=== PATIENT | male | born 1995 | race Two or more races ===

== ENCOUNTER 2020-01-27 19:17 | Inpatient (IN) | payer BC, OTHER ==
[~2020-01-27] VITALS: Ht 170.2 cm; Wt 60.8 kg
--- NOTE | 2020-01-27 19:45 | NUR ---
PT CAME TO THE ED C/O ALCOHOL WITHDRAWL. TREMORS X 2 DAYS, +NV PT STATES HAVING COFFEE GROUND EMESIS. LAST DRINK @1300 TODAY. PT AAOX4, APPEARS TO BE ANXIOUS, VSS, RESPIRATIONS EVEN AND UNLABORED ON RA W/ NAD NOTED. PT CONNECTED TO THE MONITOR AND POX.
[2020-01-27] MEDS ORDERED: LORAZEPAM INJ 2 MG/ML VIAL IV ONE (20:30)
[2020-01-27 20:39] LABS: BASOPHILS % (AUTO) 0.2 % (0.0-2.0); EOSINOPHILS % (AUTO) 0.3 % (0.0-6.0); HEMATOCRIT 47 % (39-51); HEMOGLOBIN 16.2 g/dL (13.5-17.5); LYMPHOCYTES # (AUTO) 2.6 /CMM (0.8-4.8); LYMPHOCYTES % (AUTO) 23.9 % (20.0-44.0); MEAN CORPUSCULAR HGB CONC 35 g/dl (31.0-36.0); MEAN CORPUSCULAR VOLUME 92 fL (80-96); MONOCYTES # (AUTO) 1.1 /CMM (0.1-1.30); MONOCYTES % (AUTO) 9.8 % (2.0-12.0); NEUTROPHILS # (AUTO) 7.2 /CMM (1.8-8.9); NEUTROPHILS % (AUTO) 65.8 % (43.0-81.0); PLATELET COUNT (AUTO) 226 /CMM (150-450); RED BLOOD CELL COUNT(AUTO) 5.11 MIL/uL (4.5-6.0)
[2020-01-27] MEDS ORDERED: LORAZEPAM INJ 2 MG/ML VIAL ONE (20:58)
[2020-01-27 21:04] LABS: CALCIUM, SERUM 9.8 mg/dL (8.5-10.1); CREATININE 0.9 mg/dL (0.6-1.3); POTASSIUM 3.7 mmol/L (3.5-5.1)
--- NOTE | 2020-01-27 21:09 | NUR ---
PT MEDICATED ORDERED
--- NOTE | 2020-01-27 21:17 | NUR ---
URINE COLLECTED AND SENT TO LAB
--- NOTE | 2020-01-27 21:17 | NUR ---
COVID SWAB SENT TO LAB
[2020-01-27 21:22] LABS: BILIRUBIN,DIRECT 0.3 mg/dL (0.0-0.2); BILIRUBIN,TOTAL 1.1 mg/dL (0.2-1.0)
[2020-01-27 21:23] LABS: ALBUMIN 4.7 g/dL (3.4-5.0); SALICYLATE 0.8 mg/dL (2.8-20.0)
[2020-01-27] MEDS ORDERED: MAG HYDROX/AL HYDROX/SIMETH 30 ML UDC ONE (21:27)
[2020-01-27] MEDS ORDERED: ONDANSETRON HCL/PF 4 MG/2 ML VIAL ONE (21:27)
[2020-01-27] MEDS ORDERED: LIDOCAINE VISCOUS 2% UD 15 ML UDC ONE (21:27)
[2020-01-27] MEDS ORDERED: LIDOCAINE VISCOUS 2% UD 15 ML UDC MM ONE (21:30)
[2020-01-27] MEDS ORDERED: MAG HYDROX/AL HYDROX/SIMETH 30 ML UDC PO ONE (21:30)
[2020-01-27] MEDS ORDERED: ONDANSETRON HCL/PF 4 MG/2 ML VIAL IVP ONE (21:30)
[2020-01-27 21:34] LABS: APPEARANCE,URINE Slightly Cloudy (CLEAR); BILIRUBIN,URINE SMALL (NEGATIVE); BLOOD, URINE Negative Ery/uL (NEGATIVE); COLOR,URINE Dark (YELLOW); KETONES,URINE 40 (NEGATIVE); LEUKOCYTE ESTERASE ,URINE Negative (NEGATIVE); NITRITE, URINE Negative (NEGATIVE); PROTEIN,URINE Trace mg/dl (NEGATIVE); UGLUCOSE Negative (NEGATIVE); UROBILINOGEN,URINE 0.2 EU/dL (0.2)
[2020-01-27] MEDS ORDERED: DIVA250T PO (21:35)
[2020-01-27] MEDS ORDERED: BUSP30TA2 PO (21:36)
[2020-01-27 21:46] LABS: BACTERIA,URINE None seen /HPF (None Seen); RBC,URINE 0-2 /HPF (0-2); SQUAMOUS EPITHELIAL CELL,UR Rare /HPF (None Seen); WBC,URINE 0-2 /HPF (0-3)
--- NOTE | 2020-01-27 22:00 | NUR ---
CALLED LAB FOR COVID RESULT. STILL PENDING
--- NOTE | 2020-01-27 22:07 | NUR ---
[facility] STAFF [facility]OX [facility]AC[facility] [phone] (CALL FIRST) MILLIE OVER NIGHT STAFF [phone]
[2020-01-27] MEDS ORDERED: Z GUARD REMEDY 2 OZ OINT TP PRN (23:00)
[2020-01-27] MEDS ORDERED: IV NS 0.9% 1,000 ML IV ONE (23:00)
[2020-01-27] MEDS ORDERED: Thiamine 100 MG in IV D5W 50 ML IV SCH (23:00)
[2020-01-27] MEDS ORDERED: MAG HYDROX/AL HYDROX/SIMETH 30 ML UDC PO PRN (23:00)
[2020-01-27] MEDS ORDERED: ZOLPIDEM TARTRATE 5 MG TABLET PO PRN (23:00)
[2020-01-27] MEDS ORDERED: MAGNESIUM HYDROXIDE 30 ML UDC PO PRN (23:00)
--- NOTE | 2020-01-27 23:40 | NUR ---
REPORT CALLED TO JANNY HOLLEY.
[2020-01-28] VITALS: BP 141/79
--- NOTE | 2020-01-28 | NUR ---
LEAF BLENDER NOTES PATIENT ARRIVED TO UNIT, AMBULATORY; A/OX4, BREATHING EVEN AND UNLABORED; NO SOB NOTED; TOLERATING ROOM AIR WELL; SKIN ASSESSMENT DONE; SKIN INTACT; MEDICAL HX AND BELONGINGS LIST OBTAINED; PATIENT REPORTED LAST ETOH DRINK 01/27/20 1300; PATIENT REPORTS HE VAPES DAILY; PATIENT ABLE TO MAKE NEEDS KNOWN; PATIENT ORIENTED TO UNIT AND STAFF; SAFETY PRECAUTIONS IMPLEMENTED; BED LOCKED IN LOWEST POSITION; CALL LIGHT WITHIN REACH; AWAITING ORDERS; WILL CONT TO MONITOR
--- NOTE | 2020-01-28 00:06 | NUR ---
SUPERVISOR ESTIMATOR AND DRAFTER NOTES PER ER STAFF, AWAITING FOR TRANSFER PACKET TO BE BROUGHT TO UNIT; THERE IS DELAY WITH ADMISSION PACKETS; CHARGE NURSE AWARE; UNABLE TO REQUEST IV MEDICATION AT THIS TIME; WILL CONT TO MONITOR Addendum: 01/28/20 at 0010 by JACK BAIRES RN ALSO UNABLE TO ASSIGN PATIENT A TELE BOX AT THIS TIME; PAPERWORK REQUIRED; WILL CONT TO MONITOR
--- NOTE | 2020-01-28 00:18 | NUR ---
PT TRANSFERRED TO ROOM VIA ACLS PROTOCOL
--- NOTE | 2020-01-28 00:32 | NUR ---
DRIER BELT CONVEYOR NOTES TELE MONITOR ATTACHED TO PATIENT, READS NSR 67BPM; THIAMINE IV NOT AVAILABLE IN UNIT, ORDER FAXED TO NURSING AIRCRAFT DE ICER INSTALLER; CHARGE NURSE AWARE; WILL GIVE MED SOON AVAILABLE; WILL CONT TO MONITOR PATIENT
--- NOTE | 2020-01-28 01:21 | NUR ---
DESK OFFICER NOTES AWAITING IV ANTIBIOTICS; NURSING TWILL CUTTER AWARE AND CHARGE NURSE AWARE; WILL CONT TO MONITOR
[2020-01-28] MEDS ORDERED: Thiamine 100 MG/ML VIAL ONE (01:51)
[2020-01-28] MEDS ORDERED: LORAZEPAM INJ 2 MG/ML VIAL IV PRN (03:00)
[2020-01-28 04:00] VITALS: BP 135/69
[2020-01-28] MEDS: MORPHINE SULFATE INJ 2 MG/ML DISP.SYRIN IV PRN ×4 (05:43→20:10)
--- NOTE | 2020-01-28 05:48 | NUR ---
ANTHROPOLOGY AND ARCHEOLOGY INSTRUCTOR NOTES PATIENT COMPLAINT OF 8/10 GENERALIZED BODY PAIN IN LEFT SIDE; VITALS STABLE; TELE MONITOR READS NSR; PATIENT A/OX4; BREATHING EVEN AND UNLABORED; MORPHINE IVP ADMINISTERED PER MD ORDER; WILL CONT TO MONITOR
--- NOTE | 2020-01-28 06:52 | NUR ---
DENTAL HYGIENIST CLOSING NOTES PATIENT RESTING IN BED COMFORTABLY; A/OX4; BREATHING EVEN AND UNLABORED; TOLERATING ROOM AIR WELL; NO SOB NOTED; PATIENT ABLE TO MAKE NEEDS KNOWN; TELE MONITOR READS NSR 60S BPM; L AC #18 INTACT AND PATENT, TOLERATING IVF WELL; ALL NEEDS RENDERED; SAFETY PRECAUTIONS IMPLEMENTED; BED LOCKED IN LOW POSITION; SIDE RAILSX2; CALL LIGHT WITHIN REACH; WILL ENDORSE ELIEZER TO ONCOMING SHIFT
--- NOTE | 2020-01-28 07:32 | NUR ---
TELE/RN OPENING NOTES RECEIVED PATIENT ON BED ALERT AND ORIENTED X4. DENIES PAIN AT THIS TIME. PATIENT IN NO APPARENT RESPIRATORY DISTRESS NOTED. PATIENT ON TELE MONITOR SR 85 WITH PVC. WILL CONTINUE TO MONITOR.
[2020-01-28 07:47] VITALS: BP 131/87
[2020-01-28] MEDS: LORAZEPAM INJ 2 MG/ML VIAL IV PRN ×2 (07:52→17:54)
[2020-01-28 08:26] LABS: BASOPHILS % (AUTO) 0.4 % (0.0-2.0); EOSINOPHILS % (AUTO) 1.1 % (0.0-6.0); HEMATOCRIT 45 % (39-51); HEMOGLOBIN 15.2 g/dL (13.5-17.5); LYMPHOCYTES # (AUTO) 2.5 /CMM (0.8-4.8); LYMPHOCYTES % (AUTO) 33.9 % (20.0-44.0); MEAN CORPUSCULAR HGB CONC 34 g/dl (31.0-36.0); MEAN CORPUSCULAR VOLUME 92 fL (80-96); MONOCYTES # (AUTO) 0.9 /CMM (0.1-1.30); MONOCYTES % (AUTO) 12.1 % (2.0-12.0); NEUTROPHILS # (AUTO) 3.9 /CMM (1.8-8.9); NEUTROPHILS % (AUTO) 52.5 % (43.0-81.0); PLATELET COUNT (AUTO) 172 /CMM (150-450); RED BLOOD CELL COUNT(AUTO) 4.91 MIL/uL (4.5-6.0); WHITE BLOOD COUNT (AUTO) 7.4 K/uL (4.3-11.0)
[2020-01-28 08:52] LABS: ALBUMIN 3.7 g/dL (3.4-5.0); BILIRUBIN,DIRECT 0.3 mg/dL (0.0-0.2); BILIRUBIN,TOTAL 1.2 mg/dL (0.2-1.0); CALCIUM, SERUM 8.4 mg/dL (8.5-10.1); CREATININE 0.8 mg/dL (0.6-1.3); MAGNESIUM 2.2 mg/dL (1.8-2.4); PHOSPHORUS 3.8 mg/dL (2.5-4.9); POTASSIUM 3.8 mmol/L (3.5-5.1); TOTAL PROTEIN, SERUM 6.6 g/dL (6.4-8.2)
[2020-01-28] MEDS: FOLIC ACID 1 MG TABLET PO SCH (09:12)
[2020-01-28] MEDS: MULTIVITAMINS,THERAGRAN 1 UDTAB TABLET PO SCH (09:12)
[2020-01-28] MEDS: THIAMINE HCL 100 MG TABLET PO SCH (09:13)
[2020-01-28] MEDS: PANTOPRAZOLE 40 MG VIAL IV SCH (09:19)
[2020-01-28] MEDS: IV NS 0.9% 1,000 ML IV PRN ×2 (10:36→20:13)
--- NOTE | 2020-01-28 10:40 | NUR ---
MS/RN NOTES PATIENT COMPLAINED OF PAIN 10/10 AND ASK FOR MORPHINE 2MG IV WAS ADMINISTERED WILL CONTINUE TO MONITOR.
--- NOTE | 2020-01-28 11:34 | NUR ---
MS/RN NOTES PATIENT FACE SHEET WAS FAXED TO [facility] FOR EVALUATION.
--- NOTE | 2020-01-28 11:41 | NUR ---
MS/RN NOTES PATIENT COMPLAINED OF PAIN 01/05. PATIENT ASK FOR NORCO 5/325 MG 1 TAB P.O. WAS GIVEN.
[2020-01-28] MEDS: HYDROCODONE/APAP 5/325MG 1 EACH TABLET PO PRN ×2 (11:43→17:46)
--- NOTE | 2020-01-28 11:56 | NUR ---
MS/RN NOTES [facility] NEED TO CALL THIS FACILITY WHEN PATIENT IS ABOUT TO DISCHARGE THEY WILL FLOOR SANDING MACHINE OPERATOR THE PATIENT.
[2020-01-28] MEDS: LACTULOSE 10 G/15 ML UDC (PYXIS) PO ONE ×2 (12:24→12:28)
--- NOTE | 2020-01-28 14:25 | NUR ---
MS/RN NOTES PATIENT HAD HISTORY OF [place] DISEASE PER MOTHER. MD IS AWARE
[2020-01-28 15:50] VITALS: BP 133/82
[2020-01-28] MEDS: ONDANSETRON HCL/PF 4 MG/2 ML VIAL IVP PRN (15:50)
--- NOTE | 2020-01-28 15:59 | NUR ---
MS/RN NOTES PATIENT COMPLAINED OF NAUSEA AND VOMITING X1 ZOFRAN 4MG IV WAS GIVEN. WILL CONTINUE TO MONITOR.
[2020-01-28] MEDS: busPIRone 5 MG TABLET PO SCH (17:53)
[2020-01-28] MEDS ORDERED: DIVALPROEX SODIUM PO SCH (18:00)
--- NOTE | 2020-01-28 18:52 | NUR ---
MS/RN CLOSING NOTES PATIENT IS ON BED, ALERT AND ORIENTED X4. PATIENT IN NO APPARENT RESPIRATORY DISTRESS NOTED. DENIES PAIN AT THIS TIME. IV ACCESS AT LEFT FOREARM #22 G WITH IV FLUID OF NS 1L AT 120 ML/HR ON AND INFUSING WELL. SEEN AND EXAMINED BY MD WITH ORDERS MADE AND CARRIED OUT. ALL DUE MEDICATION WAS GIVEN. CHECKED PATIENT EVERY 2 HOURS. SAFETY PRECAUTION IN PLACED. BED IN LOWEST POSITION, SIDE RAILS UP X2 AND LOCKED. CALL LIGHT WITHIN REACH. WILL ENDORSED TO SUPERVISOR WEBBING FOR ELIEZER.
[2020-01-28 20:00] VITALS: BP 119/67
[2020-01-28] MEDS: DIVALPROEX SODIUM 125 MG TABLET.DR PO SCH (20:10)
[2020-01-28 20:28] VITALS: BP 119/67
--- NOTE | 2020-01-28 20:29 | NUR ---
VIDHYA NOTES ALERT AND ORIENTED X4, ROOM AIR, COMPLAINING OF ABDOMINAL PAIN OF 04/07, IVF AT 125 ML/HR, WILL CONTINUE TO MONITOR Addendum: 01/29/20 at 0404 by BLESSING TURNER RN IVF AT 120ML/HR
[2020-01-29] MEDS: LORAZEPAM INJ 2 MG/ML VIAL IV PRN ×4 (00:59→20:10)
[2020-01-29] MEDS: ONDANSETRON HCL/PF 4 MG/2 ML VIAL IVP PRN (00:59)
[2020-01-29] MEDS: MORPHINE SULFATE INJ 2 MG/ML DISP.SYRIN IV PRN ×4 (02:55→17:07)
[2020-01-29] MEDS: IV NS 0.9% 1,000 ML IV PRN ×2 (04:39→17:26)
--- NOTE | 2020-01-29 06:23 | NUR ---
RN NOTES ALERT AND ORIENTED X4, STABLE ON ROOM AIR, COMPLAINING OF EPIGASTRIC PAIN, MORPHINE 2 MG IVPB Q4HRS, FEELING RESTLESS AND ANXIOUS DUE TO ETOH WITHDRAWAL, GIVEN ATIVAN, HAD X1 VOMITING, PATIENT FLUSHED EMESIS BEFORE ASSESSMENT, PER PATIENT, EMESIS IS REDDISH AND GREEN. TOLD PATIENT TO SAVE EMESIS AND CALL RN FOR ASSESSMENT. VOIDING SPONTANEOUSLY VIA TOILET, IVF AT 120 ML/HR, CONTINUE PAIN AND EMESIS MANAGEMENT, MONITOR ELECTROLYTES, WHEN STABLE, FOR DISCHARGE CALLM [facility] FOR CERTIFIED NOVELL ADMINISTRATOR.
--- NOTE | 2020-01-29 07:36 | NUR ---
MS/RN OPENING NOTES RECEIVED PATIENT ON BED AWAKE, ALERT AND ORIENTED X4. PATIENT COMPLAINED OF PAIN AND ANXIOUS AT THIS TIME. PATIENT IN NO APPARENT RESPIRATORY DISTRESS NOTED. WILL CONTINUE TO MONITOR.
[2020-01-29 08:00] VITALS: BP 130/84
[2020-01-29 08:03] LABS: BASOPHILS % (AUTO) 0.3 % (0.0-2.0); EOSINOPHILS % (AUTO) 1.7 % (0.0-6.0); HEMATOCRIT 44 % (39-51); HEMOGLOBIN 14.8 g/dL (13.5-17.5); LYMPHOCYTES # (AUTO) 1.9 /CMM (0.8-4.8); LYMPHOCYTES % (AUTO) 30.2 % (20.0-44.0); MEAN CORPUSCULAR HGB CONC 34 g/dl (31.0-36.0); MEAN CORPUSCULAR VOLUME 92 fL (80-96); MONOCYTES # (AUTO) 0.6 /CMM (0.1-1.30); MONOCYTES % (AUTO) 9.2 % (2.0-12.0); NEUTROPHILS # (AUTO) 3.8 /CMM (1.8-8.9); NEUTROPHILS % (AUTO) 58.6 % (43.0-81.0); PLATELET COUNT (AUTO) 166 /CMM (150-450); RED BLOOD CELL COUNT(AUTO) 4.76 MIL/uL (4.5-6.0); WHITE BLOOD COUNT (AUTO) 6.4 K/uL (4.3-11.0)
[2020-01-29] MEDS: THIAMINE HCL 100 MG TABLET PO SCH (08:14)
[2020-01-29] MEDS: MULTIVITAMINS,THERAGRAN 1 UDTAB TABLET PO SCH (08:14)
[2020-01-29] MEDS: DIVALPROEX SODIUM 125 MG TABLET.DR PO SCH ×2 (08:16→21:51)
[2020-01-29] MEDS: HYDROCODONE/APAP 5/325MG 1 EACH TABLET PO PRN ×2 (08:16→13:27)
[2020-01-29] MEDS: FOLIC ACID 1 MG TABLET PO SCH (08:16)
[2020-01-29] MEDS: PANTOPRAZOLE 40 MG VIAL IV SCH (08:17)
[2020-01-29 08:21] LABS: CALCIUM, SERUM 8.8 mg/dL (8.5-10.1); CREATININE 0.9 mg/dL (0.6-1.3); POTASSIUM 3.8 mmol/L (3.5-5.1)
[2020-01-29] MEDS: NICOTINE PATCH (21MG) 21 MG PATCH.TD24 TD SCH (12:09)
--- NOTE | 2020-01-29 13:20 | NUR ---
MS/RN NOTES JERALD BURT SEROQUEL 75 MG P.O. HS NOTED AND CARRIED OUT.
[2020-01-29 16:00] VITALS: BP 139/84
[2020-01-29] MEDS: busPIRone 5 MG TABLET PO SCH (17:06)
--- NOTE | 2020-01-29 19:16 | NUR ---
MS/RN CLOSING NOTES PATIENT IS ON BED, ALERT AND ORIENTED X4. PATIENT IN NO APPARENT RESPIRATORY DISTRESS NOTED. DENIES PAIN AT THIS TIME. IV ACCESS AT LEFT FOREARM #22 G WITH IV FLUID OF NS 1L AT 120 ML/HR ON AND INFUSING WELL. SEEN AND EXAMINED BY MD WITH ORDERS MADE AND CARRIED OUT. ALL DUE MEDICATION WAS GIVEN. CHECKED PATIENT EVERY 2 HOURS. SAFETY PRECAUTION IN PLACED. BED IN LOWEST POSITION, SIDE RAILS UP X2 AND LOCKED. CALL LIGHT WITHIN REACH. WILL ENDORSED TO PAIRER ODDS FOR ELIEZER.
--- NOTE | 2020-01-29 19:30 | NUR ---
MS RN OPENING NOTES PATIENT SLEEPING IN BED, EASY TO AWAKEN. A/OX4. ON RA. NO S/S OF SOB OR PAIN NOTED. BREATHING IS EVEN AND UNLABORED. IV PRESENT ON LEFT FA, SIZE 20, INTACT & PATENT WITH NS RUNNING AT 120 ML/HR. SAFETY MEASURES IN PLACE AND PATIENT'S NEEDS MET. BED LOCKED, SIDE RAILS X2, CALL LIGHT WITHIN REACH. WILL CONTINUE TO MONITOR.
[2020-01-29 20:00] VITALS: BP 114/78
[2020-01-29] MEDS ORDERED: QUETIAPINE FUMARATE 25 MG TABLET PO SCH (22:00)
[2020-01-30 06:58] LABS: CALCIUM, SERUM 8.2 mg/dL (8.5-10.1); CREATININE 0.9 mg/dL (0.6-1.3); POTASSIUM 3.4 mmol/L (3.5-5.1)
[2020-01-30 06:59] LABS: BASOPHILS % (AUTO) 0.2 % (0.0-2.0); HEMATOCRIT 43 % (39-51); HEMOGLOBIN 14.6 g/dL (13.5-17.5); LYMPHOCYTES # (AUTO) 1.1 /CMM (0.8-4.8); MEAN CORPUSCULAR HGB CONC 34 g/dl (31.0-36.0); MEAN CORPUSCULAR VOLUME 92 fL (80-96); MONOCYTES # (AUTO) 0.5 /CMM (0.1-1.30); MONOCYTES % (AUTO) 10.9 % (2.0-12.0); NEUTROPHILS % (AUTO) 64.9 % (43.0-81.0); PLATELET COUNT (AUTO) 127 /CMM (150-450); RED BLOOD CELL COUNT(AUTO) 4.66 MIL/uL (4.5-6.0); WHITE BLOOD COUNT (AUTO) 4.6 K/uL (4.3-11.0)
--- NOTE | 2020-01-30 07:30 | NUR ---
RN OPENING NOTES RECEIVED PATIENT SLEEPING IN BED, EASY TO AWAKEN. A/OX4. ON RA. NO CARDIAC OR RESPIRATORY DISTRESS NOTED. NO SOB NOTED. SATURATING WELL ON ROOM AIR. BREATHING EVEN AND UNLABORED. IV PRESENT ON LEFT FA, G 20, INTACT & PATENT AND FLUSHING WELL. NO S/S OF INFECTION OR INFILTRATION NOTED. WITH NS RUNNING AT 120 ML/HR. SAFETY MEASURES IN PLACE. BED LOCKED AND IN LOW POSITION, SIDE RAILS X2, CALL LIGHT WITHIN REACH. WILL CONTINUE TO MONITOR.
--- NOTE | 2020-01-30 07:37 | NUR ---
MS RN CLOSING NOTES PATIENT SLEEPING IN BED. A/OX4. NO ACUTE CHANGES DURING SHIFT. IV PRESENT ON RIGHT FA, SIZE 22, INTACT & PATENT, HEP LOCKED. SAFETY MEASURES IN PLACE AND PATIENT'S NEEDS MET. BED LOCKED, SIDE RAILS X2, CALL LIGHT WITHIN REACH. ENDORSED TO DAY SHIFT RN PLAN OF CARE.
[2020-01-30] MEDS: MORPHINE SULFATE INJ 2 MG/ML DISP.SYRIN IV PRN ×2 (07:43→11:53)
[2020-01-30] MEDS: THIAMINE HCL 100 MG TABLET PO SCH (08:15)
[2020-01-30] MEDS: NICOTINE PATCH (21MG) 21 MG PATCH.TD24 TD SCH (08:15)
[2020-01-30] MEDS: FOLIC ACID 1 MG TABLET PO SCH (08:15)
[2020-01-30] MEDS: LORAZEPAM INJ 2 MG/ML VIAL IV PRN (08:16)
[2020-01-30] MEDS: DIVALPROEX SODIUM 125 MG TABLET.DR PO SCH (08:16)
[2020-01-30] MEDS: MULTIVITAMINS,THERAGRAN 1 UDTAB TABLET PO SCH (08:16)
[2020-01-30] MEDS: PANTOPRAZOLE 40 MG VIAL IV SCH (08:18)
[2020-01-30] MEDS ORDERED: POTASSIUM CHLORIDE 20 MEQ TAB.PRT.SR PO ONE (08:30)
[2020-01-30] MEDS: IV NS 0.9% 1,000 ML IV PRN (09:25)
[2020-01-30] MEDS: ONDANSETRON HCL/PF 4 MG/2 ML VIAL IVP PRN (09:36)
--- NOTE | 2020-01-30 12:30 | NUR ---
REFUSED BODY CHECK PT REFUSED BODY CHECK. HE STATES NOTHING IS WRONG WITH HIS SKIN. CHECKED ADMISSION ASSESSMENT. PT SKIN IS INTACT UPON ADMISSION. IV ACCESS REMOVED ON R FOREARM. NO BLEEDING NOTED.
--- NOTE | 2020-01-30 12:45 | NUR ---
INVENTORY INVENTORY DONE WITH THE PT. ALL BELONGING NOTED WITH THE PT. I ALSO GAVE HIM HIS WALLET AND WATCH THAT WAS OBTAINED FROM THE SAFE. PT ACKNOWLEDGED THAT HE HAS ALL OF HIS BELONGINGS. INVENTORY WAS SIGNED. NO CONCERNS NOTED.
--- NOTE | 2020-01-30 13:00 | NUR ---
D/C TO [facility] PT DISCHARGED TO [facility] TO CONT WITH HIS TX THERE FOR ALCOHOL ADDICTION. ALL D/C INSTRUCTIONS PROVIDED TO PT. INSTRUCTED PT TO SCHEDULE A F/U APPT WITH PRIMARY PHYSICIAN. PT AGREED. ALL D/C PAPERWORKS GIVEN TO PT. ACKNOWLEDGED ALL TEACHING PROVIDED. PT REFUSED BODY CHECK. INVENTORY SIGNED. PT IS A/OX4. NO CARDIAC OR RESP DISTRESS NOTED. MEDICALLY STABLE. PT WAS PICKED UP BY [facility].
== END 2020-01-30 13:00 | DRG 896 ==
LOC: ER 19:22 → TELE 23:54 → MED 01-28 08:40
PROVIDERS: ADMIT Nurse Practitioner Acute Care; ATTEND Nurse Practitioner Acute Care
DX: F10.239 Alcohol dependence with withdrawal, unspecified (principal); G92 Toxic encephalopathy; F41.1 Generalized anxiety disorder; F39 Unspecified mood [affective] disorder; Y90.9 Presence of alcohol in blood, level not specified; F19.10 Other psychoactive substance abuse, uncomplicated
CPT/HCPCS: 36415; 80048-TC; 80053-TC; 80076-TC; 80305; 81000-TC; 82140-TC; 82550-TC; 83735-TC; 84100-TC; 85025-TC; 87081-TC; A4217; C9113; G0378; G0480; J2060; J2270; J2405; J3411; J7030; J7060